=== PATIENT | male | born 2000 | race Caucasian/White ===

== ENCOUNTER 2022-09-20 23:23 | Emergency (ER) | payer BC, OTHER | END 2022-09-21 00:14 | disposition home or self-care (01) | LOC: MADERS 23:23 | DX: L25.3 Unspecified contact dermatitis due to other chemical products (principal) | CPT/HCPCS: 99282 ==

== ENCOUNTER 2022-10-14 01:30 | Emergency (ER) | payer OTHER ==
[2022-10-14] MEDS ORDERED: predniSONE 20 MG TAB ONE (02:11)
== END 2022-10-14 02:15 | disposition home or self-care (01) ==
LOC: MADERS 01:30
DX: R21 Rash and other nonspecific skin eruption (principal)
CPT/HCPCS: 99283; J7512